=== PATIENT | female | born 1995 | race Caucasian/White ===

== ENCOUNTER 2016-11-04 18:20 | Emergency (ER) | payer OTHER ==
[2016-11-04 18:26] VITALS: BP 146/97; PULSE 73; RESP 18; TEMP 98.1; O2SAT 97
--- NOTE | 2016-11-04 18:43 | EDPHY ---
H & P Time Seen by Provider: 11/04/16 18:34 HPI/ROS: CHIEF COMPLAINT: Head injury while playing [employer] HISTORY OF PRESENT ILLNESS: 20-year-old female otherwise healthy with no coagulopathic disorder anticoagulant use states that yesterday at approximately 1:00 p.m. while playing [employer] competitively she collided with another player. No loss of consciousness. No amnesia but felt temporarily dazed. She was evaluated by the rehab trainer at that time and cleared. Today she awoke and has been feeling out of it. No nausea or vomiting. Mild nonprogressive non thunderclap headache. No back pain. No midline C-spine pain. No peripheral paresthesia, weakness, numbness. No abdominal pain. No dyspnea. No gait instability. PRIMARY CARE PROVIDER: [facility] REVIEW OF SYSTEMS: A ten point review of systems was performed and is negative with the exception of the items mentioned in the HPI PAST MEDICAL/SURGICAL HISTORY: no anticoagulant use, no relevant medical/ surgical history SOCIAL HISTORY: Student PHYSICAL EXAM 1) GENERAL: Well-developed, well-nourished, alert and oriented. Appears to be in no acute distress. Answering questions appropriately. 2) HEAD: Normocephalic, atraumatic. No hematoma no depression 3) HEENT: Pupils equal, round, reactive to light bilaterally. Negative Horners. Nasopharynx, oropharynx, clear. No deformity or angulation of nose. No septal hematoma. No rhinorrhea. No oral trauma. Ears bilaterally with normal tympanic membranes. No hemotympanum. No fluid or blood in the external auditory canal. No raccoon eyes. No Scanlon sign. Teeth are normally aligned with no gross malocclusion, TMJ bilaterally nontender, facial bones nontender including the zygomatic arch, maxilla mandible. 4) NECK: Posterior cervical spine is nontender, no stepoff, no effusion. Full range of motion which does not elicit any midline cervical spine pain, no posterior midline tenderness, no step-off. 5) LUNGS: Clear to auscultation bilaterally, no wheezes, no rhonchi, no retractions. 6) HEART: Regular rate and rhythm, 7) ABDOMEN: No guarding, no rebound, no focal tenderness, no peritoneal signs, 8) MUSCULOSKELETAL: Moving all extremities, no focal areas of tenderness, no obvious trauma. 9) BACK: No midline vertebral tenderness, no fluctuance, no step-off, no obvious trauma, no visual or palpable abnormality. 10) SKIN: No laceration. No abrasion 11) NEURO: Awake, alert, and oriented to person, place and time. Answers questions appropriately. There were no obvious focal neurologic abnormalities. No cerebellar dysfunction. Normal steady gait. Upper and lower extremities bilaterally with strength 5 / 5, reflexes 2+. DIFFERENTIAL DIAGNOSIS: Not necessarily in any particular order, my differential diagnosis includes, but is not limited to, concussion, skull fracture, intraparenchymal contusion, subarachnoid, subdural and epidural hematoma. The patient understands that this diagnosis is provisional and can never be 100% accurate. Smoking Status: Never smoked Constitutional: Initial Vital Signs Temperature (C) 36.7 C 11/04/16 18:24 Heart Rate 73 11/04/16 18:24 Respiratory Rate 18 11/04/16 18:24 Blood Pressure 146/97 H 11/04/16 18:24 O2 Sat (%) 97 11/04/16 18:24 O2 Delivery Mode Room Air Allergies/Adverse Reactions: amoxicillin Allergy (Verified 11/04/16 18:22) Penicillins Allergy (Verified 11/04/16 18:22) Home Medications: Medication Instructions Recorded Lo Loestrin Fe 1-10 Tablet 09/16/14 Prozac 10 MG (*) 11/04/16 MDM/Departure - [facility] ED Course/Re-evaluation: Patient has been evaluated by myself. She has a nonfocal neurologic exam, answering questions appropriately, incident occurred over 24 hours ago. She has negative [place] head injury decision-making tool. I think that intracranial hemorrhage and/or skull fracture, less than likely in this patient. Therefore do not think that the benefits of CT imaging outweigh the risks. Nonetheless I have office the patient she is in agreement she does not feel is indicated. I have provided her my usual and customary head injury precautions instructions including 2nd impact syndrome. Recommend follow up with Dr. Mali Murphy. She feels comfortable being discharged. Given concussion information booklet. - Depart Disposition: Home, Routine, Self-Care Clinical Impression: Activity, frisbee Head injury due to trauma Qualifiers: Encounter type: initial encounter Qualified Code(s): S09.90XA - Unspecified injury of head, initial encounter Condition: Good Instructions: Concussion (ED), Head Injury (ED) Additional Instructions: ALTHOUGH THERE IS NO EVIDENCE OF SERIOUS HEAD INJURY AT THIS TIME, DELAYED SIGNS CAN APPEAR 24 TO 48 HOURS AFTER INJURY. WE RECOMMEND THAT YOU DESIGNATE A FRIEND OR FAMILY MEMBER TO OBSERVE YOU OVER THE NEXT FEW DAYS TO ENSURE THAT YOUR CONDITION IS PROGRESSING NORMALLY. PLEASE RETURN TO THE EMERGENCY DEPARTMENT (ED) IMMEDIATELY IF YOU HAVE INCREASED HEADACHE, PERSISTENT HEADACHE , VOMITING, WEAKNESS, CONFUSION OR VISUAL PROBLEMS. WE RECOMMEND THAT YOU DO NOT RESUME CONTACT SPORTS OR ACTIVITIES THAT TAKE COORDINATION OR BALANCE SUCH SKIING OR RIDING A BICYCLE UNTIL CLEARED TO DO SO BY YOUR DOCTOR OR BY A NEUROLOGIST. Referrals: Mali Murphy MD [Medical Doctor] - 5-7 days, call for appt.
== END 2016-11-04 18:59 | disposition home or self-care (01) ==
DX: S09.90XA Unspecified injury of head, initial encounter (principal); W51.XXXA Accidental striking against or bumped into by another person, initial encounter; Y99.8 Other external cause status; Y93.74 Activity, frisbee

== ENCOUNTER 2016-11-06 11:00 | Emergency (ER) | payer OTHER ==
[2016-11-06 11:06] VITALS: BP 128/96; PULSE 74; RESP 16; TEMP 98.1; O2SAT 95
--- NOTE | 2016-11-06 11:43 | EDPHY ---
H & P Time Seen by Provider: 11/06/16 11:17 HPI/ROS: CHIEF COMPLAINT: Headache, difficulty concentrating HISTORY OF PRESENT ILLNESS: 20-year-old female presents to the emergency department by private vehicle complaining of ongoing headache and difficulty concentrated. The patient was playing [employer] and collided with another player 3 days ago. She was seen in the emergency department was evaluated and discharged. The patient did not lose consciousness. She denies nausea or vomiting. No neck or back pain. No paresthesias in upper lower extremities. She states that she is having difficulty concentrating and is requesting a note for her professor for extension on an assignment. REVIEW OF SYSTEMS: Constitutional: No fever, no chills. Eyes: No double or blurry vision. ENT: No sore throat. Respiratory: No cough, no shortness of breath. Cardiac: No chest pain. Gastrointestinal: No abdominal pain, vomiting or diarrhea. Genitourinary: No dysuria. Musculoskeletal: No neck or back pain. Skin: No rashes. Neurological: Ongoing headache Past Medical/Surgical History: Negative Social History: Single, [employer] student Smoking Status: Never smoked Physical Exam: General Appearance: Alert, no distress. 128/96, heart rate 74, 95% on room air , normal gait Eyes: Pupils equal and round. Extraocular motions are all intact. ENT: Mouth: Mucous membranes moist. Respiratory: No wheezing, rhonchi, or rales, lungs are clear to auscultation. Cardiovascular: Regular rate and rhythm. Gastrointestinal: Abdomen is soft and nontender, no masses, no rebound or guarding, bowel sounds normal. Neurological: Alert and oriented x 3, cranial nerves II through XII grossly intact Skin: Warm and dry, no rashes. Musculoskeletal: Nontender to palpate along the cervical, thoracic or lumbar spine. Neck is supple. Extremities: Full range of motion and no peripheral edema. Psychiatric: Patient is oriented X 3, there is no agitation. Constitutional: Initial Vital Signs Temperature (C) 36.7 C 11/06/16 11:03 Heart Rate 74 11/06/16 11:03 Respiratory Rate 16 11/06/16 11:03 Blood Pressure 128/96 H 11/06/16 11:03 O2 Sat (%) 95 11/06/16 11:03 O2 Delivery Mode Room Air Allergies/Adverse Reactions: amoxicillin Allergy (Verified 11/06/16 11:02) Penicillins Allergy (Verified 11/06/16 11:02) Home Medications: Medication Instructions Recorded Lo Loestrin Fe 1-10 Tablet 09/16/14 Prozac 10 MG (*) 11/04/16 Medical Decision Making ED Course/Re-evaluation: 20-year-old female presents with ongoing headache and difficulty concentrating. The patient has a normal neurologic examination. I discussed the pros and cons of CT imaging of her brain including radiation exposure and the patient agrees with not doing CT scan of her brain. She was given a note for her professor per her request. She was instructed to return if she developed worsening headache, vomiting, altered mental status, or if she seems worse in any way. Differential Diagnosis: Head injury including but not limited to concussion, skull fracture, intraparenchymal contusion, subarachnoid, subdural and epidural hematoma. Departure - Departure Disposition: Home, Routine, Self-Care Clinical Impression: Concussion Qualifiers: Encounter type: initial encounter Loss of consciousness presence/duration: without LOC Qualified Code(s): S06.0X0A - Concussion without loss of consciousness, initial encounter Condition: Good Instructions: Concussion (ED) Additional Instructions: Avoid any activity that might put you at risk for another head injury for at least 1 week. Referrals: Mali Murphy MD [Medical Doctor] - As per Instructions Stand Alone Forms: Physical Education Excuse, Statement of Treatment
== END 2016-11-06 11:50 | disposition home or self-care (01) ==
DX: S06.0X0D Concussion without loss of consciousness, subsequent encounter (principal); W51.XXXD Accidental striking against or bumped into by another person, subsequent encounter